=== PATIENT | female | born 1940 | race Caucasian/White ===

== ENCOUNTER 2018-01-16 18:47 | Emergency (ER) | payer MEDICARE ==
--- NOTE | 2018-01-16 19:53 | EDM.PDOC ---
ED HPI GENERAL MEDICAL PROBLEM - General Chief Complaint: ENT Problem Stated Complaint: BLOODY NOSE Time Seen by Provider: 01/16/18 19:35 Source of Information: Reports: Patient, Family, Old Records, RN History Limitations: Reports: Other (Patient with dementia) - History of Present Illness INITIAL COMMENTS - FREE TEXT/NARRATIVE: 77 yo female on aspirin presents with intermittent R anterior nose bleed today. Was not seen in the clinic. There was no reported trauma to the nose. Bleeding controlled at this time. Onset: Today Onset Date: 01/16/18 Onset Time: 10:00 Duration: Waxing/Waning Location: Reports: Face (R nares) Quality: Reports: Other (no pain) Severity: Mild Improves with: Reports: None Worsens with: Reports: None Context: Reports: Other (on ASA therapy) Associated Symptoms: Reports: Other (none) Treatments VICE PRESIDENT OF INSTRUCTION: Reports: Other (see below) (none) - Related Data Allergies Allergy/AdvReac Type Severity Reaction Status Date / Time warfarin [Warfarin] Allergy Cannot Verified 05/28/15 06:18 Remember Home Meds: Home Meds Aspirin [Ecotrin] 81 mg PO BEDTIME 05/09/15 [History] Atenolol [Tenormin] 50 mg PO BEDTIME 05/09/15 [History] Calcium Citrate/Vitamin D3 [Calcium Citrate - Vit D Caplet] 1 tab PO DAILY 05/09 [History] Cetirizine [ZyrTEC] 10 mg PO DAILY 05/09/15 [History] Cholecalciferol (Vitamin D3) [Vitamin D3] 5,000 unit PO DAILY 05/09/15 [History] Codeine/guaiFENesin [guaiFENesin-Codeine Syrup] 10 ml PO Q6HR PRN 05/09/15 [ History] Fish Oil/[place]-3 Fatty Acids [Fish Oil] 1 gm PO DAILY 05/09/15 [History] Hydrochlorothiazide/Lisinopril [Lisinopril-HCTZ 20-25 MG] 1 tab PO BEDTIME 05/09 [History] Spironolactone [Aldactone] 50 mg PO BEDTIME 05/09/15 [History] traZODone 25 mg PO BEDTIME 05/09/15 [History] Vitamin B Complex [B Complex] 1 tab PO DAILY 05/25/15 [History] Anastrozole [Arimidex] 1 mg PO DAILY 01/16/18 [History] Donepezil HCl [Aricept] 10 mg PO DAILY 01/16/18 [History] Ipratropium/Albuterol Sulfate [Iprat-Albut 0.5-3(2.5) mg/3 ml] 3 ml INH Q4H [History] Past Medical History Other OB/BYN History: hemorhaging after labor and delivery Other Neuro History: 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 Other Psychiatric History: tired for last 3 years Other Endocrine/Metabolic History: hypoglycemic - Past Surgical History Other Musculoskeletal Surgeries/Procedures:: bilateral knee replacements, left shoulder replacement hammer toe left bunionectomy Social & Family History - Tobacco Use Smoking Status *Q: Former Smoker Years of Tobacco use: 3 Used Tobacco, but Quit: Yes Month/Year Tobacco Last Used: 10/1979 Second Hand Smoke Exposure: No - Alcohol Use Days Per Week of Alcohol Use: 0 - Recreational Drug Use Recreational Drug Use: No ED ROS ENT - Review of Systems Review Of Systems: See Below Constitutional: Reports: No Symptoms HEENT: Reports: Nosebleed (right) Respiratory: Reports: No Symptoms Cardiovascular: Reports: No Symptoms GI/Abdominal: Reports: No Symptoms : Reports: No Symptoms ED EXAM, ENT - Physical Exam Exam: See Below Exam Limited By: No Limitations General Appearance: Alert, WD/WN, No Apparent Distress Eye Exam: Bilateral Eye: Normal Inspection Ears: Normal External Exam, Normal Canal, Hearing Grossly Normal, Normal TMs Nose: Dried Blood (R nares. ). No: Nasal Deformity, Nasal Tenderness, Nasal Ecchymosis, Foreign Body, Septal Hematoma, Active Bleeding Mouth/Throat: Normal Inspection, Normal Gums, Other (dentures, no active oropharyngeal bleeding). No: Dental Tenderness, Dental Trauma Head: Atraumatic, Normocephalic Respiratory/Chest: No Respiratory Distress, Lungs Clear, No Accessory Muscle Use Cardiovascular: Regular Rate, Rhythm Skin: Warm, Dry, Intact, Normal Color, No Rash Course - Vital Signs Text/Narrative:: Morris RhinoRocket placed in L nares after Viscous Lidocaine 5 ml was injected into the R affected nostril. Last Recorded V/S: Last Vital Signs Temp 36.4 C 01/16/18 19:23 Pulse 76 01/16/18 19:23 Resp 16 01/16/18 19:23 BP 152/90 H 01/16/18 19:23 Pulse Ox 96 01/16/18 19:23 - Orders/Labs/Meds Meds: Medications Discontinued Medications Generic Name Dose Route Start Last Admin Trade Name Radha PRN Reason Stop Dose Admin Lidocaine HCl 5 ml 01/16/18 19:56 01/16/18 20:13 Xylocaine 2% Viscous PO 01/16/18 19:57 5 ml ASDIRECTED ONE Administration Lidocaine HCl Confirm 01/16/18 20:00 01/16/18 20:14 Xylocaine 2% Jelly Administered 01/16/18 20:01 Not Given Dose 10 ml .ROUTE .STK-MED ONE Lidocaine HCl Confirm 01/16/18 20:02 01/16/18 20:12 Xylocaine 2% Viscous Administered 01/16/18 20:03 Not Given Dose 15 ml .ROUTE .STK-MED ONE Departure - Departure Time of Disposition: 20:26 Disposition: Home, Self-Care 01 Condition: Good Clinical Impression: Anterior epistaxis - Discharge Information Referrals: PCP,None [Primary Care Provider] - Forms: ED Department Discharge
[2018-01-16] MEDS ORDERED: Lidocaine 2% Viscous Solution 100 ML Bottle PO ONE (19:56)
[2018-01-16] MEDS ORDERED: Lidocaine 2% Jelly 10 ML Urojet ONE (20:00)
[2018-01-16] MEDS: Lidocaine 2% Viscous Solution 15 ML Cup ONE (20:12)
[2018-01-16 20:32] VITALS: BP 162/94
== END 2018-01-16 20:44 | disposition home or self-care (01) ==
LOC: JP.ED 18:47
DX: R04.0 Epistaxis (principal); Z88.8 Allergy status to other drugs, medicaments and biological substances; Z79.899 Other long term (current) drug therapy; Z87.891 Personal history of nicotine dependence; Z79.82 Long term (current) use of aspirin
CPT/HCPCS: 30901; 30903; 99283; A9270

== ENCOUNTER 2018-02-02 18:22 | Emergency (ER) | payer MEDICARE ==
[2018-02-02] MEDS ORDERED: Sodium Chloride 0.9% 10 ML Syringe FLUSH PRN (19:01)
[2018-02-02] MEDS ORDERED: Lactated Ringers 1,000 ML IV ONE (19:01)
--- NOTE | 2018-02-02 19:05 | EDM.PDOC ---
ED HPI GENERAL MEDICAL PROBLEM - General Chief Complaint: Gastrointestinal Problem Stated Complaint: MEDICAL Time Seen by Provider: 02/02/18 18:49 Source of Information: Reports: Patient, Family, RN Notes Reviewed History Limitations: Reports: Physical Impairment - History of Present Illness INITIAL COMMENTS - FREE TEXT/NARRATIVE: 77-year-old female presents to the emergency department today complaint of abdominal pain, she has a known history of dementia was evaluated in the clinic today lab work done and x-rays done she does have a urinary tract infection blood work was within normal limits however the abdominal film does show moderate amount of stool and large amount of gas. is concerned as he can no longer care for his at home and would like her admitted to the hospital Lower Abdomen Pain Score (Numeric/FACES): 3 - Related Data Allergies Allergy/AdvReac Type Severity Reaction Status Date / Time warfarin [Warfarin] Allergy Cannot Verified 05/28/15 06:18 Remember Home Meds: Home Meds Aspirin [Ecotrin] 81 mg PO BEDTIME 05/09/15 [History] Atenolol [Tenormin] 50 mg PO BEDTIME 05/09/15 [History] Calcium Citrate/Vitamin D3 [Calcium Citrate - Vit D Caplet] 1 tab PO DAILY 05/09 [History] Cetirizine [ZyrTEC] 10 mg PO DAILY 05/09/15 [History] Cholecalciferol (Vitamin D3) [Vitamin D3] 5,000 unit PO DAILY 05/09/15 [History] Codeine/guaiFENesin [guaiFENesin-Codeine Syrup] 10 ml PO Q6HR PRN 05/09/15 [ History] Fish Oil/[place]-3 Fatty Acids [Fish Oil] 1 gm PO DAILY 05/09/15 [History] Hydrochlorothiazide/Lisinopril [Lisinopril-HCTZ 20-25 MG] 1 tab PO BEDTIME 05/09 [History] Spironolactone [Aldactone] 50 mg PO BEDTIME 05/09/15 [History] traZODone 25 mg PO BEDTIME 05/09/15 [History] Vitamin B Complex [B Complex] 1 tab PO DAILY 05/25/15 [History] Anastrozole [Arimidex] 1 mg PO DAILY 01/16/18 [History] Donepezil HCl [Aricept] 10 mg PO DAILY 01/16/18 [History] Ipratropium/Albuterol Sulfate [Iprat-Albut 0.5-3(2.5) mg/3 ml] 3 ml INH Q4H [History] Past Medical History HEENT History: Reports: Cataract, Hard of Hearing Cardiovascular History: Reports: Hypertension Respiratory History: Reports: SOB Other OB/BYN History: hemorhaging after labor and delivery Neurological History: Reports: Alzheimers Disease Other Neuro History: 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 Psychiatric History: Reports: Alzheimers Disease, Dementia Other Psychiatric History: tired for last 3 years Endocrine/Metabolic History: Reports: Diabetes, Type II Other Endocrine/Metabolic History: hypoglycemic Oncologic (Cancer) History: Reports: Breast Other Oncologic History: left - Infectious Disease History Infectious Disease History: Reports: Chicken Pox, Measles, Mumps - Past Surgical History Other Musculoskeletal Surgeries/Procedures:: bilateral knee replacements, left shoulder replacement hammer toe left bunionectomy Oncologic Surgical History: Reports: Mastectomy Social & Family History - Family History Family Medical History: Noncontributory - Tobacco Use Smoking Status *Q: Never Smoker Years of Tobacco use: 3 Used Tobacco, but Quit: Yes Month/Year Tobacco Last Used: 10/1979 Second Hand Smoke Exposure: No - Caffeine Use Caffeine Use: Reports: Coffee - Alcohol Use Days Per Week of Alcohol Use: 0 - Recreational Drug Use Recreational Drug Use: No ED ROS GENERAL - Review of Systems Review Of Systems: Unable To Obtain ED EXAM, GI/ABD - Physical Exam Exam: See Below Exam Limited By: Physical Impairment General Appearance: Alert, No Apparent Distress Respiratory/Chest: No Respiratory Distress, Lungs Clear, Normal Breath Sounds, No Accessory Muscle Use Cardiovascular: Regular Rate, Rhythm, No Murmur GI/Abdominal Exam: Soft, No Distention Course - Vital Signs Last Recorded V/S: Last Vital Signs Temp 98.1 F 02/02/18 18:32 Pulse 88 02/02/18 18:32 Resp 18 02/02/18 18:32 BP 172/110 H 02/02/18 18:32 Pulse Ox 92 L 02/02/18 18:32 - Orders/Labs/Meds Orders: Active Orders 24 hr Category Date Time Status Enema [RC] ASDIRECTED Care 02/02/18 19:01 Active Peripheral IV Care [RC] . DIRECTED Care 02/02/18 19:01 Active Lactated Ringers [Ringers, Lactated] 1,000 ml Med 02/02/18 19:01 Active IV BOLUS Sodium Chloride 0.9% [Saline Flush] Med 02/02/18 19:01 Active 10 ml FLUSH ASDIRECTED PRN Peripheral IV Insertion Adult [OM.PC] Urgent Oth 02/02/18 19:01 Ordered Medication Orders Lactated Ringer's (Ringers, Lactated) 1,000 mls @ 999 mls/hr IV BOLUS ONE Stop: 02/02/18 20:01 Sodium Chloride (Saline Flush) 10 ml FLUSH ASDIRECTED PRN PRN Reason: Keep Vein Open Meds: Medications Generic Name Dose Route Start Last Admin Trade Name Freq PRN Reason Stop Dose Admin Lactated Ringer's 1,000 mls @ 999 mls/hr 02/02/18 19:01 Ringers, Lactated IV 02/02/18 20:01 BOLUS ONE Sodium Chloride 10 ml 02/02/18 19:01 Saline Flush FLUSH ASDIRECTED PRN Keep Vein Open Departure - Departure Time of Disposition: 19:28 Disposition: DC/Tfer to Acute Hospital 02 Condition: Poor Clinical Impression: Functional constipation Urinary tract infection Qualifiers: Urinary tract infection type: acute cystitis Hematuria presence: with hematuria Qualified Code(s): N30.01 - Acute cystitis with hematuria Dementia Qualifiers: Dementia type: unspecified type Dementia behavioral disturbance: without behavioral disturbance Qualified Code(s): F03.90 - Unspecified dementia without behavioral disturbance - Discharge Information Referrals: Jericho Henson MD [Primary Care Provider] - Forms: ED Department Discharge Additional Instructions: Please report to [facility] Dr. Kim, for further evaluation - My Orders Last 24 Hours: My Active Orders 02/02/18 19:01 Enema [RC] ASDIRECTED Peripheral IV Care [RC] . DIRECTED Lactated Ringers [Ringers, Lactated] 1,000 ml IV BOLUS Sodium Chloride 0.9% [Saline Flush] 10 ml FLUSH ASDIRECTED PRN Peripheral IV Insertion Adult [OM.PC] Urgent - Assessment/Plan Last 24 Hours: My Active Orders 02/02/18 19:01 Enema [RC] ASDIRECTED Peripheral IV Care [RC] . DIRECTED Lactated Ringers [Ringers, Lactated] 1,000 ml IV BOLUS Sodium Chloride 0.9% [Saline Flush] 10 ml FLUSH ASDIRECTED PRN Peripheral IV Insertion Adult [OM.PC] Urgent Plan: Assessment Acuity = acute Site and laterality = urinary tract infection with weakness complicated patient with known history of dementia also ongoing abdominal pain with moderate amount of stool and gas on plain film Etiology = probable bacterial cause for the urinary tract infection unclear etiology for the slow transit time on a no constipation Manifestations = none Location of injury = Home Lab values = none, lab work and plain films done in clinic this morning at 10: 00 Plan Because we are on red alerts and cannot accept patients here family is requesting admission due to the weakness and unable to care for her at home also would like to facilitate mcc placement. She was started on Bactrim this morning has received 1 dose also started on MiraLAX but has not started that medication at this time. Family requested to go to [facility] in [facility] I did speak with Dr. Kim who kindly accepted the patient in transport, she will be transported via private vehicle, IV was placed no other treatments done in this emergency department This note was dictated using [employer] voice recognition software please call with any questions on syntax or elvia.
[2018-02-02 19:39] VITALS: BP 152/96
== END 2018-02-02 20:00 ==
LOC: JP.ED 18:22
DX: K59.04 Chronic idiopathic constipation (principal); N30.01 Acute cystitis with hematuria; F03.90 Unspecified dementia, unspecified severity, without behavioral disturbance, psychotic disturbance, mood disturbance, and anxiety; I10 Essential (primary) hypertension; E11.9 Type 2 diabetes mellitus without complications; Z88.8 Allergy status to other drugs, medicaments and biological substances; Z79.82 Long term (current) use of aspirin; Z79.899 Other long term (current) drug therapy; Z87.891 Personal history of nicotine dependence
CPT/HCPCS: 96360; 99285-25